=== PATIENT | female | born 1990 | race Caucasian/White ===

== ENCOUNTER 2017-01-31 13:38 | Emergency (ER) | payer OTHER ==
[~2017-01-31] VITALS: Ht 166.4 cm; Wt 72.6 kg
[~2017-01-31 13:38] MED LIST: BACTRIM DS TAB1 EACH PO; MECLIZINE HCL25 MG PO; ZITHROMAX250 M2 PO; ZOFRAN4 M2 PO
[2017-01-31 14:08] VITALS: BP 137/83
[2017-01-31] MEDS ORDERED: PRAZOSIN HCL1 M1 PO (14:47)
[2017-01-31] MEDS ORDERED: PROZAC10 M1 PO (14:47)
--- NOTE | 2017-01-31 16:20 | ED GENERAL ADULT ---
History of Present Illness General Chief Complaint: General Adult Stated Complaint: VOMTING Source: patient, old records Exam Limitations: no limitations Vital Signs & Intake/Output Vital Signs & Intake/Output Vital Signs Date Time Temp Pulse Resp B/P Pulse O2 O2 Flow FiO2 Ox Delivery Rate 01/31 1630 96.9 03 1408 96.9 96 18 137/83 97 Room Air Room Air Allergies Coded Allergies: NO KNOWN ALLERGIES (10/27/12) Triage Note: TRIAGE: 26 Y/O FEMALE PRESENTS C/O 1 EPISODE OF BLOODY VOMITUS. REPORTS "BRIGHT RED, MORE THAN WHAT IT'S BEEN IN THE PAST WITH EPISODES OF VOMITING." REPORTS VOMITING SECONDARY TO MIGRAINE SINCE THIS MORNING. Triage Nurses Notes Reviewed? yes : No Patient currently breastfeeds: No HPI: This is a 26-year-old female with past medical history significant for PTSD, depression, migraines, suicidal ideation, who comes in for chief complaint of hematemesis. Patient states that she had migraine this a.m., and secondary to nausea she had an episode of vomiting. Patient noted a few spots of bright red blood in her vomit, was concerned and came to the ED. Upon further questioning, patient states that she has had at least 5 previous similar episodes and that they happen every few months accompanied by headache. The only time she has vomiting is during episodes of migraine headache. Patient denies any change in bowel habits, bladder habits, abdominal pain, melena, or hematochezia. She endorses 9 out of 10 headache that is worse with sound and light, mild nausea and a burning sensation in her throat secondary to vomiting. She took 3 Advil to ameliorate headache, however she states she vomited them back up. She has had previous ED visits for similar complaint, in addition to suicidal ideation and abdominal pain. Workup has generally been negative and patient is usually discharged with Zofran to follow-up with PCP. Her only medications include 10 mg of Prozac and 3 mg of prazosin at night for PTSD and depression. Patient has recently quit smoking, previously she had 1/2 pack habit for 5 years. She denies any alcohol or drug abuse. (HERI SHARIF,[facility]) Reconcile Medications Fluoxetine HCl (Prozac) 10 MG CAPSULE 1 [facility] ([facility]) Ondansetron (Zofran Odt) 4 MG TAB.RAPDIS 1 TAB SL TID nausea Prazosin HCl 1 MG CAPSULE 3 CAP PO QPM SLEEP (Reported) (JENNI GUZMAN MD) Past History Travel History Traveled to [place] past 21 day No Medical History Any Pertinent Medical History? see below for history Neurological: NONE EENT: NONE Cardiovascular: NONE Respiratory: NONE Gastrointestinal: NONE Hepatic: NONE Renal: NONE Musculoskeletal: NONE Psychiatric: anxiety, depression, PTSD PERSISTENT DEPRESSIVE DISORDER, hx of suicidal ideation Endocrine: NONE Blood Disorders: NONE Cancer(s): NONE Tetanus Vaccine: 03/30/12 Surgical History Surgical History: non-contributory Psychosocial History Who do you live with Other (see notes) What is your primary language Lao Tobacco Use: Quit >30 days ago ETOH Use: occasional use Illicit Drug Use: denies illicit drug use Family History Hx Contributory? No (DEMETRIA LIRIANO MD) Review of Systems Review of Systems Constitutional: Denies: chills, diaphoresis, fever, malaise, weakness. EENTM: Denies: blurred vision, double vision, visual changes, eye drainage, ear pain, hearing changes. Respiratory: Denies: cough, short of breath. Cardiovascular: Denies: chest pain, palpitations. GI: Reports: nausea, vomiting. Denies: abdominal pain, bloating, constipation, diarrhea, distention, bowel incontinence, melena, bloody stool, changes in stool. Genitourinary: Reports: no symptoms. Musculoskeletal: Reports: no symptoms. Skin: Reports: no symptoms. Neurological/Psychological: Denies: anxiety, depressed. (DEMETRIA LIRIANO MD) Review of Systems Hematologic/Endocrine: Reports: no symptoms. Immunologic/Allergic: Reports: no symptoms. All Other Systems: Reviewed and Negative (JENNI GUZMAN MD) Physical Exam Physical Exam General Appearance: well developed/nourished, no apparent distress, alert, awake , comfortable Head: atraumatic, normal appearance Eyes: Bilateral: normal appearance, PERRL, EOMI. Ears, Nose, Throat: normal pharynx, patient has mildly erythematous pharynx. Tonsils are enlarged, but without exudative appearance. Uvula midline Neck: normal inspection, supple, full range of motion Respiratory: normal breath sounds, chest non-tender, no respiratory distress, quiet respiration, lungs clear Cardiovascular: regular rate/rhythm Gastrointestinal: soft, non-tender Core Measures ACS in differential dx? No CVA/TIA Diagnosis: No Severe Sepsis Present: No Septic Shock Present: No (DEMETRIA LIRIANO MD) Physical Exam Peripheral Pulses: 4+ carotid (R), 4+ carotid (L) Extremities: normal inspection, normal capillary refill, normal range of motion, no edema Skin: intact, normal color, warm/dry Lymphatic: no anterior cervical stephanie (JENNI GUZMAN MD) Progress Differential Diagnoses I considered the following diagnoses in my evaluation of the patient: [ gastroenteritis, migraine, nausea] Plan of Care: Patient currently has nausea, one episode of vomiting and headache. No evidence of hematemesis at this moment. Patient is sitting comfortably and satting well on room air. We'll give her Zofran and 600 mg by mouth ibuprofen and monitor. Likely she'll be discharged home. Initial ED EKG: none (DEMETRIA LIRIANO MD) Differential Diagnoses I considered the following diagnoses in my evaluation of the patient: (JENNI GUZMAN MD) Departure Departure Disposition: HOME OR SELF CARE Condition: Stable Clinical Impression Primary Impression: Nausea & vomiting Secondary Impressions: Migraine Referrals: PATIENT HAS NO PRIMARY CARE DR (PCP/Family) Additional Instructions: If vomiting persists or volume of blood in vomit increases then return to ED. Departure Forms: Customer Survey General Discharge Information (DEMETRIA LIRIANO MD) Departure Prescriptions: Current Visit Scripts Ondansetron (Zofran Odt) 1 TAB SL TID #15 TAB Resident Co-Sign Statement Statement: ED Attending supervision documentation- x I saw and evaluated the patient. I have also reviewed all the pertinent lab results and diagnostic results. I agree with the findings and the plan of care as documented in the Resident's documentation. [] I have reviewed the ED Record and agree with the Resident's documentation. [] Additions or exceptions (if any) to the Resident's note and plan are summarized below: [] (JENNI GUZMAN MD) Critical Care Note Critical Care Note Critical Care Time: non-applicable (JENNI GUZMAN MD)
[2017-01-31] MEDS ORDERED: ZOFRAN ODT4 M1 SL (17:00)
== END 2017-01-31 19:03 ==
LOC: ERH 13:38
DX: G43.909 Migraine, unspecified, not intractable, without status migrainosus (principal); R11.2 Nausea with vomiting, unspecified
CPT/HCPCS: J3101

== ENCOUNTER 2017-02-11 22:06 | Emergency (ER) | payer OTHER ==
[~2017-02-11 22:06] MED LIST changes: +PRAZOSIN HCL1 M1 PO; +PROZAC10 M1 PO; +ZOFRAN ODT4 M1 SL
[2017-02-11 22:17] VITALS: BP 144/84
--- NOTE | 2017-02-11 22:34 | ED ANKLE/FOOT INJURY COMPLAINT ---
History of Present Illness General Chief Complaint: Foot or Ankle Injury Stated Complaint: RIGHT FOOT PAIN, X 3 DAYS Source: patient, old records Exam Limitations: no limitations Vital Signs & Intake/Output Vital Signs & Intake/Output Vital Signs Date Time Temp Pulse Resp B/P Pulse O2 O2 Flow FiO2 Ox Delivery Rate 02/11 2217 98.3 78 20 144/84 99 ED Intake and Output 02/12 0000 02/11 1200 Intake Total Output Total Balance Patient 165 lb Weight Allergies Coded Allergies: NO KNOWN ALLERGIES (10/27/12) Reconcile Medications Fluoxetine HCl (Prozac) 10 MG CAPSULE 1 CAP PO QAM MENTAL HEALTH (Reported) Prazosin HCl 1 MG CAPSULE 3 CAP PO QPM SLEEP (Reported) Triage Note: PER PT UNKNOWN INJURY OR UNSURE IF IT WAS AN INJURY TO RT FOOT FEELS LIKE A CRAMP, OR SOMETHING OK TO WT BEAR. LMP 3 WEEKS AGO Triage Nurses Notes Reviewed? yes Occurred: 3 DAYS AGO Duration: day(s): (3), constant Timing: recent history Severity: mild, moderate Severity Numbers: 6 Pain/Injury Location: Right: 1st toe. Method of Injury: unknown Modifying Factors: Worsens With: movement (PALPATION). Associated Symptoms: none : No Patient currently breastfeeds: No HPI: 26-year-old female presents emergency room for evaluation complaining of mild to moderate right first MTP joint pain for the past 3 days. She denies any known injury or trauma. She states that the pain is worse with palpation. She denies any redness warmth or rashes or skin she states that it has appeared swollen to her. She denies radiation the pain there is no other foot ankle or leg pain she has not taken anything for symptoms or attempted ice or elevation. There are no other modifying factors or associated symptoms. She denies any difficulty with ambulation. (JOE CRENSHAW) Past History Travel History Traveled to [place] past 21 day No Medical History Any Pertinent Medical History? see below for history Neurological: NONE EENT: NONE Cardiovascular: NONE Respiratory: NONE Gastrointestinal: NONE Hepatic: NONE Renal: NONE Musculoskeletal: NONE Psychiatric: anxiety, depression, PTSD PERSISTENT DEPRESSIVE DISORDER hx of suicidal ideation Endocrine: NONE Blood Disorders: NONE Cancer(s): NONE Tetanus Vaccine: 03/30/12 Surgical History Surgical History: non-contributory Psychosocial History Who do you live with Other (see notes) What is your primary language Togolese Tobacco Use: Quit >30 days ago Family History Hx Contributory? No (JOE CRENSHAW) Review of Systems Review of Systems Constitutional: Reports: see HPI. All Other Systems: Reviewed and Negative Comments Review of systems: See HPI, All other systems negative. Constitutional, no chills no fever, no malaise HEENT: no sore throat no congestion Cardiovascular: No chest pain , no palpitation Skin, no rashes, no change in skin Respiratory: No dyspnea no cough no sputum GI: No nausea no vomiting, no diarrhea, : No dysuria No hematuria Muscle skeletal: joint pain,no back pain, no neck pain, Neurologic: No numbness no headache Psych: No stress Heme/endocrine: No bruising no bleeding no polyuria Immunology: No lymphadenopathy, (JOE CRENSHAW) Physical Exam Physical Exam General Appearance: well developed/nourished, no apparent distress, alert, awake , comfortable Leg/Knee/Thigh Left: normal range of motion Comments: Well-developed well-nourished patient in no apparent distress. HEENT: Atraumatic, extraocular motion intact Neck: Supple, FROM Back: FROM Cardiovascular: Regular rate and rhythms no murmurs Respiratory: No respiratory distress. Patient speaking in full complete sentences. Upper Extremities: full range of motion Hip/Pelvis: Atraumatic/Stable. FROM. No pain with pelvic compression Knee: Atraumatic/stable. FROM. No joint swelling, no effusion. No laxity. Negative aubree/anterior drawer test. No pain with ROM Leg: Atraumatic. Nontender. No edema, 5 out of 5 strength in the lower extremity, normal dorsiflexion of great toe bilaterally, gross sensation is intact, patellar tendon reflex 2+ bilaterally. Ankle/Foot: Tender to palpation over the right first MTP joint, there is no overlying erythema or redness or warmth, no swelling, Atraumatic/stable. Skin intact. FROM. The ankle and foot have No swelling, no effusion. No laxity on exam Pulses: Normal/equal DP/PT pulses bilaterally. Brisk cap refill Neuro: Alert and oriented x3 Skin: Warm & dry;No appreciable rash on exposed skin Psych: Mood affect normal, normal memory normal judgment. (JOE CRENSHAW) Progress Differential Diagnosis: cellulitis, gout, fracture, dislocation, sprain, contusion Plan of Care: Orders Procedure Date/time Status XRY-FOOT COMPLETE, RIGHT 02/11 2302 Active X-ray ordered patient had acute ibuprofen. Discussed with the patient her x-ray results need for supportive care rest ice Tylenol Motrin advised close follow-up with her primary care physician return anytime sooner with any concerns they feel coupled this plan and she is ambulatory with steady gait. (JOE CRENSHAW) Diagnostic Imaging: Viewed by Me: Radiology Read. Discussed w/RAD: Radiology Read. Radiology Impression: PATIENT: MOISE ORDOÑEZ PRESENT AGE: 26 PATIENT ACCOUNT NO: [id number] : 92 LOCATION: [facility] ORDERING PHYSICIAN: JOE GUZMAN SERVICE DATE: 02/11/17-2301 EXAM TYPE: RAD - XRY-FOOT COMPLETE, R EXAMINATION: XR FOOT, RIGHT CLINICAL INFORMATION: Pain with no known injury. COMPARISON: None TECHNIQUE: AP, lateral, and oblique views of the right foot. FINDINGS: No acute fracture or dislocation. Alignment is anatomic. Joint spaces are maintained. Soft tissues are unremarkable. IMPRESSION: Normal right foot. DICTATED BY: TONY BAIG MD DATE/TIME DICTATED:02/11/172340 MID LEVEL DEVELOPER:JESSIKA DATE/TIME TRANSCRIBED:2340 CONFIDENTIAL, DO NOT COPY WITHOUT APPROPRIATE AUTHORIZATION. < Electronically signed in Other Vendor System> SIGNED BY: TONY BAIG MD 02/11/172348 (JOE CRENSHAW) Departure Departure Time of Disposition: 2300 Disposition: HOME OR SELF CARE Condition: Stable Clinical Impression Primary Impression: Tendonitis Referrals: UNKNOWN (PCP/Family) Additional Instructions: Rest ice Tylenol Motrin for pain keep the leg elevated, follow-up with her primary care physician if symptoms persist return to the emergency room with any concerns. Departure Forms: Customer Survey General Discharge Information (JOE CRENSHAW) PA/MECHANIC INDUSTRIAL TRUCK Co-Sign Statement Statement: ED Attending supervision documentation- [] I saw and evaluated the patient. I have also reviewed all the pertinent lab results and diagnostic results. I agree with the findings and the plan of care as documented in the PA's/MECHANIC INDUSTRI[employer] TR[employer]'s documentation. [X] I have reviewed the ED Record and agree with the PA's/MECHANIC INDUSTRIAL TR[employer]'s documentation. [] Additions or exceptions (if any) to the PAs/MECHANIC INDUSTRIAL TRUCK's note and plan are summarized below: [] (MORA SHARIF,BARON)
--- NOTE | 2017-02-11 23:49 | RADIOLOGY REPORT ---
EXAMINATION: XR FOOT, RIGHT CLINICAL INFORMATION: Pain with no known injury. COMPARISON: None TECHNIQUE: AP, lateral, and oblique views of the right foot. FINDINGS: No acute fracture or dislocation. Alignment is anatomic. Joint spaces are maintained. Soft tissues are unremarkable. IMPRESSION: Normal right foot.
== END 2017-02-12 00:04 ==
LOC: ERH 22:06
DX: M77.9 Enthesopathy, unspecified (principal)
CPT/HCPCS: 73630-RT

== ENCOUNTER 2017-05-28 16:50 | Emergency (ER) | payer OTHER ==
--- NOTE | 2017-05-28 16:56 | ED PSYCHIATRIC COMPLAINT ---
See Addendum History of Present Illness General Chief Complaint: Psychiatric Related Complaint Stated Complaint: BIBA FOR +SI Source: patient, old records Exam Limitations: no limitations Vital Signs & Intake/Output Vital Signs & Intake/Output Vital Signs Date Time Temp Pulse Resp B/P B/P Pulse O2 O2 Flow FiO2 Mean Ox Delivery Rate 05/28 2244 98.1 82 16 124/70 98 Room Air 05/28 2132 Room Air 05/28 1952 96.1 70 18 123/82 100 Room Air 05/28 1931 Room Air 05/28 1728 Room Air 05/28 1713 97.6 88 20 126/73 98 Room Air Allergies Coded Allergies: NO KNOWN ALLERGIES (10/27/12) Reconcile Medications Fluoxetine HCl 20 MG CAPSULE 1 CAP PO QAM MENTAL HEALTH (Reported) Prazosin HCl 1 MG CAPSULE 3 CAP PO QPM SLEEP (Reported) Triage Nurses Notes Reviewed? yes Onset: Gradual Duration: week(s):, constant, getting worse Timing: recent history Severity: severe Severity Numbers: 10 Associated Symptoms: anxiety, suicidal ideation HPI: This is a 26-year-old female presents to ER for evaluation complaining of feeling progressively more depressed anxious and having thoughts of wanting to harm herself. The patient is seen at [facility] where she was today and was referred to the ER due to her worsening thoughts. She is on prazosin and Prozac which she states is not helping. She states she's been stressed out over work and family. She denies alcohol tobacco or drug use. Patient has cut herself in the past she does not have a specific plan today. No Hi. she lives with her fianc (JOE CRENSHAW) Past History Medical History Any Pertinent Medical History? see below for history Neurological: NONE EENT: NONE Cardiovascular: NONE Respiratory: NONE Gastrointestinal: NONE Hepatic: NONE Renal: NONE Musculoskeletal: NONE Psychiatric: anxiety, depression, PTSD PERSISTENT DEPRESSIVE DISORDER hx of suicidal ideation Endocrine: NONE Blood Disorders: NONE Cancer(s): NONE Tetanus Vaccine: 03/30/12 Surgical History Surgical History: non-contributory Psychosocial History Who do you live with Other (see notes) What is your primary language [place]az[place] Family History Hx Contributory? No (JOE CRENSHAW) Review of Systems Review of Systems Constitutional: Reports: see HPI. All Other Systems: Reviewed and Negative Comments Review of systems: See HPI, All other systems negative. Constitutional, no chills no fever, no malaise HEENT: no sore throat no congestion Cardiovascular: No chest pain , no palpitation Skin: no rashes, no change in skin Respiratory: No dyspnea no cough GI: No nausea no vomiting, no diarrhea, : No dysuria No hematuria, no frequency, no discharge Muscle skeletal: No joint painno back pain, no neck pain, Neurologic: No numbness no headache Psych: see hpi Heme/endocrine: No bruising Immunology: No lymphadenopathy (JOE CRENSHAW) Physical Exam Physical Exam General Appearance: well developed/nourished, no apparent distress, alert, awake Neurological/Psychiatric: no motor/sensory deficits, awake, alert Comments: Well-developed well-nourished person in no acute distress HEENT: Normal EENT exam; PERRL, EOMi. HEAD is atraumatic. moist mucous membranes. Neck: Supple, normal range of motion Back: Nontender, no CVA tenderness. Full range of motion Cardiovascular: Regular rate and rhythms no murmurs Respiratory:No respiratory distress. Patient speaking in full complete sentences. Breath sounds clear to auscultation bilaterally: NO W/R/R Abdomen: Soft, nontender nondistended, no appreciable organomegaly. Normal bowel sounds. No rebound/guarding, Extremity: No edema, full range of motion of extremities Neuro: Alert oriented x3, motor sensory normal Skin: No appreciable rash on exposed skin, skin is warm and dry. Psych: depreswsed mood/affect, memory and judgment is normal. SAD PERSONS SAD PERSONS Response Value Depression/Hopelessness? yes 2 Previous Attempts/Psych Care yes 1 Social Support? has support 0 Stated Future Intent? yes 2 Total 5 SAD PERSONS Done? yes (JOE CRENSHAW) Progress Differential Diagnosis: depression, anxiety Plan of Care: Orders Procedure Date/time Status ED CRISIS PSYCH CONSULT 05/28 1714 Active Continuous Observation Monitor 05/28 165 Active URINE DRUG SCREEN FOR ER ONLY 05/28 165 Complete ETHANOL 05/28 1656 Complete COMPREHENSIVE METABOLIC PANEL 05/28 1656 Complete CBC WITHOUT DIFFERENTIAL 05/28 1656 Complete Laboratory Tests 05/28/17 1720: Anion Gap 10, Estimated GFR > 60, BUN/Creatinine Ratio 13.3, Glucose 98, Calcium 8.8, Total Bilirubin 0.4, AST 22, ALT 31, Alkaline Phosphatase 105, Total Protein 7.4, Albumin 4.2, Globulin 3.2, Albumin/Globulin Ratio 1.3, CBC w Diff NO MAN DIFF REQ, RBC 4.54, MCV 85.9, MCH 28.5, RDW 12.6, MPV 8.1, Gran % 73.1, Lymphocytes % 21.2, Monocytes % 4.3, Eosinophils % 1.0, Basophils % 0.4, Absolute Granulocytes 6.2, Absolute Lymphocytes 1.8, Absolute Monocytes 0.4, Absolute Eosinophils 0.1, Absolute Basophils 0, PUBS MCHC 33.1, Serum Alcohol < 10.0 05/28/17 1713: Urine Opiates Screen < 100.00, Methadone Screen < 40, Barbiturate Screen < 60, Ur Phencyclidine Scrn < 6.00, Amphetamines Screen < 100, U Benzodiazepines Scrn < 85, Urine Cocaine Screen < 50, Urine Cannabis Screen < 5.00 labs ordered, crisis consulted CASE d/w and signed out to dr guzman pending crisis reeval in am (JOE CRENSHAW) Hand-Off Endorsed To: JENNI GUZMAN MD Endorsed Time: 0100 Pending: consult (CRISIS REEVAL) (JOE CRENSHAW) Hand-Off Endorsed To: TANJA CHONG DO Endorsed Time: 0700 Pending: other (re eval) (JENNI GUZMAN MD) Departure Departure Disposition: STILL A PATIENT Condition: Stable Clinical Impression Primary Impression: Depression Referrals: UNKNOWN Departure Forms: Customer Survey General Discharge Information (JOE CRENSHAW) PA/DYE RANGE OPERATOR CLOTH Co-Sign Statement Statement: ED Attending supervision documentation- x I saw and evaluated the patient. I have also reviewed all the pertinent lab results and diagnostic results. I agree with the findings and the plan of care as documented in the PA's/DYE RANGE OPERATOR CLOTH's documentation. [] I have reviewed the ED Record and agree with the PA's/DYE RANGE OPERATOR CLOTH's documentation. [] Additions or exceptions (if any) to the PAs/DYE RANGE OPERATOR CLOTH's note and plan are summarized below: [] (JENNI GUZMAN MD)
[2017-05-28 17:30] LABS: ABSOLUTE BASOPHIL COUNT 0 /CUMM (0.0-0.2); ABSOLUTE EOSINOPHIL COUNT 0.1 /CUMM (0.0-0.7); ABSOLUTE GRANULOCYTE CT 6.2 /CUMM (1.4-6.5); ABSOLUTE LYMPH COUNT 1.8 /CUMM (1.2-3.4); ABSOLUTE MONOCYTE COUNT 0.4 /CUMM (0.10-0.60); BASOPHIL % 0.4 % (0.0-2.0); GRANULOCYTE % 73.1 % (42.2-75.2); MEAN CORPUSCULAR HGB 28.5 PG (27.0-31.0); MEAN CORPUSCULAR HGB CONC 33.1 G/DL (33.0-37.0); MEAN CORPUSCULAR VOLUME 85.9 FL (81.0-99.0); MEAN PLATELET VOLUME 8.1 FL (7.4-10.4); PLATELET COUNT 231 /CUMM (130-400); RBC DISTRIBUTION WIDTH 12.6 % (11.5-14.5); RED BLOOD CELL CT 4.54 /CUMM (4.20-5.40); WHITE BLOOD CELL COUNT 8.4 /CUMM (4.8-10.8)
[2017-05-28] MEDS ORDERED: FLUOXETINE HCL20 M2 PO (17:55)
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
--- NOTE | 2017-05-28 22:41 | ED PSY CRISIS COLLATERAL NOTE ---
Collateral Note Collateral Note Family/Inform/Belen Contacts: Collateral obtained from [facility]'s Cesilia ReavesjeanmarieDiomedes FITCH , Director, Clinical Services Ms. Rivero returned this screenplay writer's call to the [facility] on-call service. She confirms patient is a client at [facility] who receives outpatient therapy with Lucita Bunch LPC. Ms. Rivero reports patient has a history of suicidal ideation with plans to jump off a bridge. Patient also had one attempt about a year ago by overdosing - the substance was not specified. Ms. Rivero reports that today in her therapy session, patient reported suicidal ideation with a plan / felt unsafe to go home and that is why [facility] recommended an emergency evaluation at . Ms. Rivero confirmed patient's next appointment with [facility] is on 06/18/2017 for medication management. Patient will have to call [facility] to schedule next therapy appointment. An authorization form #[id number] was obtained from patient authorizing release of information to [facility]. Authorization form is signed and attached to consultation forms - ED crisis consultation to be faxed to [facility] after final disposition is assessed. Phone call with patient's allyson Pal Patient's allyson reports she is shocked by report of patient's crisis today. Allyson is aware of patient's past depression and mental health treatment. However, allyson indicates patient has not indicated any suicidal thoughts and has not presented depressed over the past few days. Allyson reports she and patient have had normal functioning recently with going to the movies, having dinner, etc. Allyson did not cite any specific safety concerns and indicates she is available to be a support upon discharge. Allyson would like to be kept informed by crisis with any treatment updates.
[2017-05-29 09:30] VITALS: BP 120/60
== END 2017-05-29 09:52 | disposition still patient (30) ==
LOC: ERH 16:50
PROVIDERS: Physician Assistant Medical
DX: F32.9 Major depressive disorder, single episode, unspecified (principal)
CPT/HCPCS: 80307; G0463; G0480